=== PATIENT | female | born 1950 | race Caucasian/White ===

== ENCOUNTER → 2022-08-24 | Outpatient (REF) | payer MEDICARE, MEDICAID, SELFPAY ==
[2022-08-24 07:51] LABS: Absolute Lymphocyte Count 1.62 X10^3/uL (0.83-4.51); Absolute Neutrophil Count 5.7 X10^3/uL (2.0-7.7); Basophil# 0.04 X10^3/uL; Basophil% 0.5 % (0-1); Eosinophil# 0.24 X10^3/uL; Eosinophils% 2.8 % (0-5); Hematocrit 26.2 % (37-47); Hemoglobin 8.3 g/dL (12.0-15.0); Lymphocyte # 1.62 X10^3/ul (0.83-4.51); Lymphocyte % 19.1 % (19-41); Mean Corp Hgb Conc 31.7 g/dL (32-36); Mean Corpuscular Hgb 32.4 pg (27.0-32.0); Mean Corpuscular Volume 102.3 fL (81-99); Mean Platelet Vol. 9.3 fl (6.2-12.0); Monocyte# 0.84 X10^3/uL; Monocyte% 9.9 % (0-10); NRBC Flagged by Analyzer 0 % (0-5); Neutrophil # 5.68 X10^3/uL (2.7-7.7); Platelet Count 294 K/mm3 (150-450); RBC Distribution Width CV 14.8 % (11.6-14.6); RBC Distribution Width SD 56.2 fl (35.1-43.9); Red Blood Count 2.56 M/mm3 (4.2-5.4); White Blood Count 8.5 K/mm3 (4.4-11.0)
[2022-08-24 08:22] LABS: Anion Gap 12 (5-15); BUN 42 mg/dL (7-18); BUN/Creat Ratio 7.6 RATIO (10-20); Calcium,Total 8.9 mg/dL (8.5-10.1); Chloride 98 mmol/L (98-107); EST Glomerular Filtration Rate 8 mL/min (>60); Est Glom Filt Rate - Afr Amer 10 mL/min (>60); Glucose 127 mg/dL (74-106); Potassium 4.4 mmol/L (3.5-5.1); Sodium Level 136 mmol/L (136-145)
== END ==
LOC: OLS.SW 05:00
PROVIDERS: Visit Provider Internal Medicine
DX: E11.9 Type 2 diabetes mellitus without complications (principal); R68.89 Other general symptoms and signs; Z13.228 Encounter for screening for other metabolic disorders
CPT/HCPCS: 36415; 80048; 85025

== ENCOUNTER 2022-08-28 15:38 | Emergency (ER) | payer MEDICARE, SELFPAY ==
[2022-08-28 15:39] VITALS: BP 148/68; PULSE 96; RESP 15; TEMP 36.7; O2SAT 97; BMI 44.6
--- NOTE | 2022-08-28 15:47 | VDUE_ITS ---
Reason For Study: Swelling Right Proximal Right jugular vein is spontaneous, widely patent, phasic, with no intraluminal echogenicity noted. Right subclavian vein is spontaneous, widely patent, phasic, with no intraluminal echogenicity noted. Right Lower Arm Right radial vein is compressible. Right ulnar vein is compressible. Right Arm Right axillary vein is spontaneous, patent, phasic, competent, compressible and demonstrates augmentation. Right brachial vein is compressible. Right cephalic vein is compressible. Right basilic vein is compressible. Patent fistula noted in the right arm. Patient Safety Preliminary to ED. VL/Venous Duplex US, Unilateral Interpretation Summary Deep veins of the right upper extremity are patent and compressible segmentally . There is no evidence of deep vein thrombosis. Patent right upper extremity fistula Ordering Physician: Tameka Del Rosario Performed By: Rachael Mullen RVT ???
--- NOTE | 2022-08-28 16:44 | EDS_ITS ---
HPI History of Present Illness Chief Complaint: Upper Extremity Injury Narrative Narrative: 72-year-old female past medical history of end-stage renal disease had fistula in her right upper extremity placed approximately 2 months ago. She is waiting for it to mature. She presents because of right upper extremity pain and swelling that she has had over the last 2 to 3 days. She was seen by Dr. Christensen with orthopedics today because of right shoulder pain. He sent her to the emergency department to rule out DVT of her right upper extremity. She states that the swelling has improved of her forearm and hand. She denies any trauma to the area. She was at the orthopod for evaluation of her right shoulder pain and upper arm pain that she has been having. She denies any other symptoms. [facility] Medical History Deep vein thrombosis of right upper extremity Right shoulder pain Home Medications acetaminophen 500 mg tablet (Tylenol Extra Strength) 1,000 mg PO TID 08/28/22 [History Last Taken Unknown] apixaban 5 mg tablet (Eliquis) 5 mg PO BID 08/28/22 [History Last Taken Unknown] ascorbate calcium (vitamin C) 500 mg tablet 500 mg PO DAILY 08/28/22 [History Last Taken Unknown] atorvastatin 40 mg tablet 40 mg PO DAILY 08/28/22 [History Last Taken Unknown] calcitriol 0.25 mcg capsule 0.25 mcg PO DAILY 08/28/22 [History Last Taken Unknown] cholecalciferol (vitamin D3) 1,250 mcg (50,000 unit) tablet (Dialyvite Vitamin D3 Max) 50,000 unit PO QMONTH 08/28/22 [History Last Taken Unknown] doxycycline hyclate 100 mg capsule 100 mg PO BID 08/28/22 [History Last Taken Unknown] ferrous sulfate 325 mg (65 mg iron) tablet (Feosol) 325 mg PO DAILY 08/28/22 [History Last Taken Unknown] insulin glargine 100 unit/mL subcutaneous solution (Lantus U-100 Insulin) 25 unit subcut HS 08/28/22 [History Last Taken Unknown] levothyroxine 100 mcg capsule 100 mcg PO DAILY 08/28/22 [History Last Taken Unknown] magnesium carbonate 250 mg capsule mg PO 08/28/22 [History Last Taken Unknown] methocarbamol 750 mg tablet 750 mg PO TID 08/28/22 [History Last Taken Unknown] oxycodone 5 mg capsule 5 mg PO Q6H PRN 08/28/22 [History Last Taken Unknown] sertraline 100 mg tablet (Zoloft) 200 mg PO DAILY 08/28/22 [History Last Taken Unknown] Allergy/AdvReac Type Severity Reaction Status Date / Time linagliptin [From [facility]] Allergy Severe Hives Verified 08/28/22 14:21 shellfish derived Allergy Severe Hives Verified 08/28/22 14:21 adhesive AdvReac Severe Rash Verified 08/28/22 14:21 Family History Mother Myocardial infarction Father Diabetes Heart disease Surgical History History of total left knee replacement History of total right knee replacement Hx of appendectomy Hx of hysterectomy Social History Smoking Status: Never smoker ROS ROS ED ROS Narrative Constitutional: No fever, no chills. HEENT: No sore throat. No neck pain. No loss of vision. No rhinorrhea. Cardiovascular: No chest pain. No palpitations. No pedal edema. Respiratory: No cough, no shortness of breath. Abdominal: No abdominal pain. No nausea. No vomiting. Genitourinary: No dysuria. No hematuria. Musculoskeletal: Right arm pain and swelling. Neurologic: No headaches. No dizziness. No lightheadedness. Skin: No rash. No change in color. Psychiatric: No depression. No anxiety. EXAM Physical Exam Narrative Exam Narrative: Afebrile. Vital signs noted. HEENT: Normocephalic. Atraumatic. PERRL, EOMI. Neck soft and supple. No point tenderness or step off. Cardiovascular: Regular rate and rhythm. No murmurs, rubs, or gallops appreciated. Respiratory: No tachypnea. Lungs clear to auscultation bilaterally. Gastrointestinal: Abdomen soft, nontender, with normoactive bowel sounds. No rebound or guarding. Neurological: Awake. Alert. Nonfocal, nonlateralizing. Skin: No rash. Normal color. No pallor. Musculoskeletal: No pedal edema. Full range of motion extremities. Fistula in right upper extremity with palpable thrill. Neurovascular intact distally. Palpable radial pulse. No erythema noted. No pitting edema noted of hand. Const Vital Signs: 08/28/22 15:39 Temperature 98.0 F Temperature Source Temporal Pulse Rate 96 Respiratory Rate 15 Blood Pressure 148/68 H Blood Pressure Mean 94 Pulse Ox 97 Oxygen Delivery Method Room Air MDM MDM MDM Narrative Medical decision making narrative: Ultrasound of the right upper extremity was obtained and was read as negative, no evidence of DVT. At this point in time, while I am unsure as to the cause of her right upper extremity pain and swelling, I do feel that she can be discharged safely home to follow-up with orthopedics and her vascular surgeon, Dr. Dl Montana. She will take [id number] medications for analgesia. Return instructions to the emergency department were reviewed. Disposition is discharged home in stable condition. Discharge Plan Triage Chief Complaint: Upper Extremity Injury ED Provider: Andrea Donnelly Dx/Rx/DC Orders Clinical Impression: Pain in right arm, Swelling of right upper extremity Instructions: ED Pain, Acute, Uncertain Cause, ED Peripheral Edema, Unilateral Prescriptions: No Action insulin glargine [Lantus U-100 Insulin] 100 unit/mL solution 25 unit subcut HS methocarbamol 750 mg tablet 750 mg PO TID acetaminophen [Tylenol Extra Strength] 500 mg tablet 1,000 mg PO TID levothyroxine 100 mcg capsule 100 mcg PO DAILY Eliquis 5 mg tablet 5 mg PO BID sertraline [Zoloft] 100 mg tablet 200 mg PO DAILY ferrous sulfate [Feosol] 325 mg (65 mg iron) tablet 325 mg PO DAILY oxycodone 5 mg capsule 5 mg PO Q6H PRN calcitriol 0.25 mcg capsule 0.25 mcg PO DAILY magnesium carbonate 250 mg capsule PO doxycycline hyclate 100 mg capsule 100 mg PO BID Dialyvite Vitamin D3 Max 1,250 mcg (50,000 unit) tablet 50,000 unit PO QMONTH ascorbate calcium (vitamin C) 500 mg tablet 500 mg PO DAILY atorvastatin 40 mg tablet 40 mg PO DAILY Primary Care Provider: Hattie Valadez,Out of Referrals: Dl Montana MD [Med Staff - Active Staff] - 3-5 Days if not improving Antonio Christensen MD [Med Staff - Active Staff] - As soon as possible [facility] ,Out of [Primary Care Provider] - Disposition Disposition: Home, Self Care
== END 2022-08-28 17:14 | disposition home or self-care (01) ==
LOC: ED 17:13
PROVIDERS: Emergency Provider Emergency Medicine; Visit Provider Emergency Medicine
DX: M79.601 Pain in right arm (principal); N18.6 End stage renal disease; Z79.4 Long term (current) use of insulin; M79.89 Other specified soft tissue disorders; Z79.899 Other long term (current) drug therapy; Z86.718 Personal history of other venous thrombosis and embolism
CPT/HCPCS: 99282; 93971

== ENCOUNTER 2022-08-28 21:52 | Emergency (ER) | payer MEDICARE, MEDICAID, SELFPAY ==
[2022-08-28 21:55] VITALS: BP 139/70; PULSE 102; RESP 20; TEMP 36.5; O2SAT 100; BMI 46.3
--- NOTE | 2022-08-28 22:40 | RAD_ITS ---
STUDY: X-RAY CHEST REASON FOR EXAM: Female, 72 years old. dyspnea TECHNIQUE: AP portable. 10:38 PM. COMPARISON: None. FINDINGS: LINES/DEVICES: Indwelling central venous catheter tip in the region of the right atrium. LUNGS: No consolidation. Reticular opacity in the left lower lung may be scarring or subsegmental atelectasis. No pneumothorax. MEDIASTINUM: Aorta atherosclerotic. CARDIAC SILHOUETTE: Not enlarged. BONES AND SOFT TISSUES: No acute abnormalities. RAD/Chest 1 View (Portable) IMPRESSION: Minimal subsegmental atelectasis versus scarring in the left lung base. No infiltrates. Central line. No pneumothorax. Electronically Signed: Mariposa Valenzuela MD at 23:17 EST ,
[2022-08-28] MEDS: Ondansetron ODT 4 MG Tablet PO (22:50)
--- NOTE | 2022-08-28 23:02 | EX.ED.DYSGE1 ---
HPI History of Present Illness Chief Complaint: Other, Pain/Inj Narrative Narrative: Patient is a 72-year-old female from the care home she has a past medical history of end-stage renal disease on dialysis hypertension hyperlipidemia and previous right femur fracture requiring juan placement. Patient states that ever since she fell a few months ago she has been staying at a care home secondary to difficulty ambulating. She states that she believes she injured her shoulder at the same time she hurt her leg but because of distracting injury never felt the pain. She states there is been no new or repeat trauma but she has been having increased right shoulder pain so she went and saw the orthopedic surgeon today. They did x-rays did not reveal any acute findings other than arthritis. She is swollen in the right arm and therefore they asked her to see the vascular surgeon who performed an ultrasound which did not show any DVT. Patient states she feels she is filling up with fluid and she feels this is secondary to the fact that they do not take enough fluid off at dialysis. She states she is scared to go to sleep because she feels there is fluid in her lungs and therefore comes to the hospital for evaluation [facility] Medical History Congestive heart failure Diabetes DVT (deep venous thrombosis) Renal failure Right shoulder pain Home Medications acetaminophen 500 mg tablet (Tylenol Extra Strength) 1,000 mg PO TID 08/28/22 [History Last Taken Unknown] apixaban 5 mg tablet (Eliquis) 5 mg PO BID 08/28/22 [History Last Taken Unknown] ascorbate calcium (vitamin C) 500 mg tablet 500 mg PO DAILY 08/28/22 [History Last Taken Unknown] atorvastatin 40 mg tablet 40 mg PO DAILY 08/28/22 [History Last Taken Unknown] calcitriol 0.25 mcg capsule 0.25 mcg PO DAILY 08/28/22 [History Last Taken Unknown] cholecalciferol (vitamin D3) 1,250 mcg (50,000 unit) tablet (Dialyvite Vitamin D3 Max) 50,000 unit PO QMONTH 08/28/22 [History Last Taken Unknown] doxycycline hyclate 100 mg capsule 100 mg PO BID 08/28/22 [History Last Taken Unknown] ferrous sulfate 325 mg (65 mg iron) tablet (Feosol) 325 mg PO DAILY 08/28/22 [History Last Taken Unknown] insulin glargine 100 unit/mL subcutaneous solution (Lantus U-100 Insulin) 25 unit subcut HS 08/28/22 [History Last Taken Unknown] levothyroxine 100 mcg capsule 100 mcg PO DAILY 08/28/22 [History Last Taken Unknown] magnesium carbonate 250 mg capsule mg PO 08/28/22 [History Last Taken Unknown] methocarbamol 750 mg tablet 750 mg PO TID 08/28/22 [History Last Taken Unknown] oxycodone 5 mg capsule 5 mg PO Q6H PRN 08/28/22 [History Last Taken Unknown] sertraline 100 mg tablet (Zoloft) 200 mg PO DAILY 08/28/22 [History Last Taken Unknown] Allergy/AdvReac Type Severity Reaction Status Date / Time linagliptin [From Tradjenta] Allergy Severe Hives Verified 08/28/22 22:06 shellfish derived Allergy Severe Hives Verified 08/28/22 22:06 adhesive AdvReac Severe Rash Verified 08/28/22 22:06 stevioside [From Stevia] AdvReac Anaphylaxis Verified 08/28/22 22:06 Family History Mother Myocardial infarction Father Diabetes Heart disease Surgical History History of total left knee replacement History of total right knee replacement Hx of appendectomy Hx of hysterectomy Social History Smoking Status: Never smoker ROS ROS ED Constitutional Constitutional ED: Denies chills or fever(s) ENT ENT ED: Denies sore throat Cardiovascular Cardiovascular: Denies chest pain Respiratory/Chest Respiratory/Chest: Reports dyspnea; Denies cough Gastrointestinal Gastrointestinal: Denies abdominal pain, diarrhea, nausea or vomiting Genitourinary Genitourinary ED: Denies dysuria Musculoskeletal Musculoskeletal: Reports other Details: Positive right shoulder pain Integumentary Denies rash Neurologic Neurologic: Reports weakness; Denies headache(s) Hematologic/Lymphatic Hematologic/Lymphatic: Reports easy bleeding and easy bruising EXAM Physical Exam Const Vital Signs: 08/28/22 21:55 08/28/22 22:06 Temperature 97.7 F L Temperature Source Temporal Pulse Rate 102 H Respiratory Rate 20 H Respiratory Effort Labored Respiratory Pattern Tachypnea Blood Pressure 139/70 H Blood Pressure Mean 93 Pulse Ox 100 Oxygen Delivery Method Nasal Cannula Oxygen Flow Rate (L/min) 2 Positive well nourished, well developed and obese General Appearance ED: well developed Nutritional Appearance: obese HEENT HEENT Narrative: No tongue or lip swelling no oral lesions no airway edema or compromise Eyes PERRL and EOMs intact bilaterally Neck supple and no JVD Resp Resp Narrative: Patient has mild tachypnea and slight accessory muscle use but otherwise no nasal flaring or retractions. Breath sounds are slight diminished throughout with faint rhonchi noted in the right lower lung field. Patient is able to speak in full sentences without dyspnea Cardio regular rate and regular rhythm GI non-tender and non-distended GI Narrative: No pulsatile mass or fluid wave noted Auscultation: normoactive bowel sounds Palpation: soft Extremity Extremity Narrative: Patient has diffuse pain with palpation of the right shoulder. There is diffuse swelling of the right arm as well but overall no joint effusion or bony deformity negative sulcus sign Bilateral legs have +3 pitting edema but negative Homans' sign bilaterally Neuro oriented x3 and CN's II-XII intact bilaterally Sensorium / Orientation: alert Psych Psych Narrative: Patient has a nervous/anxious affect Skin no rashes or lesions noted MDM MDM MDM Narrative Medical decision making narrative: Patient presented to the ER with just mild increased work of breathing and a pulse ox in the mid 90s on room air. By exam she has peripheral edema consistent with her history of end-stage renal disease on dialysis but I do not see JVD or hear crackles to suggest central vascular congestion. As patient reported she believes she was filling with fluid I did elect to perform a chest x-ray. This showed no pleural effusion or central vascular congestion. On reevaluation the patient is still satting 95% on room air with minimal work of breathing. As she does not have a significant pleural effusion that requires a thoracentesis and she is not hypoxic I do not feel there is need for further work-up. Patient be discharged back to the care home at this time Radiography Diagnostic Testing: Clinical Impression(s) from Imaging Studies Chest X-Ray 08/28/22 22:40 IMPRESSION: Minimal subsegmental atelectasis versus scarring in the left lung base. No infiltrates. Central line. No pneumothorax. Electronically Signed: Mariposa Valenzuela MD at 23:17 EST , Chest x-ray as interpreted by the emergency medicine physician reveals mild bilateral atelectasis without acute infiltrate pneumothorax or pleural effusion Discharge Plan Triage Chief Complaint: Other, Pain/Inj ED Provider: Dante Alarcon Dx/Rx/DC Orders Clinical Impression: Dyspnea, Chronic kidney disease with end stage renal failure on dialysis, Benign essential hypertension, DM type 2 (diabetes mellitus, type 2) Instructions: ED Dyspnea Prescriptions: No Action insulin glargine [Lantus U-100 Insulin] 100 unit/mL solution 25 unit subcut HS methocarbamol 750 mg tablet 750 mg PO TID acetaminophen [Tylenol Extra Strength] 500 mg tablet 1,000 mg PO TID levothyroxine 100 mcg capsule 100 mcg PO DAILY Eliquis 5 mg tablet 5 mg PO BID sertraline [Zoloft] 100 mg tablet 200 mg PO DAILY ferrous sulfate [Feosol] 325 mg (65 mg iron) tablet 325 mg PO DAILY oxycodone 5 mg capsule 5 mg PO Q6H PRN calcitriol 0.25 mcg capsule 0.25 mcg PO DAILY magnesium carbonate 250 mg capsule PO doxycycline hyclate 100 mg capsule 100 mg PO BID Dialyvite Vitamin D3 Max 1,250 mcg (50,000 unit) tablet 50,000 unit PO QMONTH ascorbate calcium (vitamin C) 500 mg tablet 500 mg PO DAILY atorvastatin 40 mg tablet 40 mg PO DAILY Primary Care Provider: Asmita Rodney Referrals: Asmita Rodney MD [Primary Care Provider] - Activity Restrictions/Additional Instructions: Please talk to your audio visual production specialist about taking more fluid off at dialysis based on your leg swelling and symptoms. However your x-ray today does not show fluid within your lungs. Please return to the ER should you have any further concerns Disposition Disposition: Home, Self Care
== END 2022-08-29 00:05 | disposition home or self-care (01) ==
PROVIDERS: Emergency Provider Emergency Medicine; PCP Internal Medicine; Visit Provider Emergency Medicine
DX: R06.00 Dyspnea, unspecified (principal); I13.2 Hypertensive heart and chronic kidney disease with heart failure and with stage 5 chronic kidney disease, or end stage renal disease; Z99.2 Dependence on renal dialysis; I50.9 Heart failure, unspecified; E11.22 Type 2 diabetes mellitus with diabetic chronic kidney disease; N18.6 End stage renal disease; Z79.4 Long term (current) use of insulin; E78.5 Hyperlipidemia, unspecified; E66.9 Obesity, unspecified; M79.89 Other specified soft tissue disorders; M79.601 Pain in right arm; Z79.899 Other long term (current) drug therapy; Z86.718 Personal history of other venous thrombosis and embolism
CPT/HCPCS: 71045; 93971; 99282; 99284

== ENCOUNTER → 2022-08-31 | Outpatient (REF) | payer MEDICARE, MEDICAID, SELFPAY ==
[2022-08-31 08:57] LABS: Absolute Lymphocyte Count 1.51 X10^3/uL (0.83-4.51); Absolute Neutrophil Count 8.7 X10^3/uL (2.0-7.7); Basophil# 0.02 X10^3/uL; Basophil% 0.2 % (0-1); Eosinophil# 0.14 X10^3/uL; Eosinophils% 1.2 % (0-5); Hematocrit 26.4 % (37-47); Hemoglobin 8.4 g/dL (12.0-15.0); Lymphocyte # 1.51 X10^3/ul (0.83-4.51); Lymphocyte % 13.1 % (19-41); Mean Corp Hgb Conc 31.8 g/dL (32-36); Mean Corpuscular Hgb 32.1 pg (27.0-32.0); Mean Corpuscular Volume 100.8 fL (81-99); Monocyte# 1.05 X10^3/uL; Monocyte% 9.1 % (0-10); NRBC Flagged by Analyzer 0 % (0-5); Neutrophil # 8.72 X10^3/uL (2.7-7.7); Neutrophil % 75.5 % (47-70); Platelet Count 357 K/mm3 (150-450); RBC Distribution Width CV 14.7 % (11.6-14.6); RBC Distribution Width SD 54.2 fl (35.1-43.9); Red Blood Count 2.62 M/mm3 (4.2-5.4); White Blood Count 11.5 K/mm3 (4.4-11.0)
[2022-08-31 09:08] LABS: Anion Gap 10 (5-15); BUN 49 mg/dL (7-18); BUN/Creat Ratio 9.5 RATIO (10-20); Calcium,Total 8.9 mg/dL (8.5-10.1); Chloride 97 mmol/L (98-107); Creatinine, Serum 5.18 mg/dL (0.55-1.02); EST Glomerular Filtration Rate 9 mL/min (>60); Est Glom Filt Rate - Afr Amer 11 mL/min (>60); Glucose 60 mg/dL (74-106); Sodium Level 134 mmol/L (136-145)
== END ==
LOC: OLS.SW 05:00
PROVIDERS: PCP Internal Medicine; Visit Provider Internal Medicine
DX: E11.9 Type 2 diabetes mellitus without complications (principal)
CPT/HCPCS: 36415; 80048; 85025

== ENCOUNTER → 2022-09-07 | Outpatient (REF) | payer MEDICARE, MEDICAID, SELFPAY ==
[2022-09-07 07:37] LABS: Absolute Lymphocyte Count 1.73 X10^3/uL (0.83-4.51); Absolute Neutrophil Count 5.3 X10^3/uL (2.0-7.7); Basophil# 0.03 X10^3/uL; Basophil% 0.4 % (0-1); Eosinophil# 0.24 X10^3/uL; Eosinophils% 2.9 % (0-5); Hematocrit 27.9 % (37-47); Hemoglobin 8.3 g/dL (12.0-15.0); Lymphocyte # 1.73 X10^3/ul (0.83-4.51); Lymphocyte % 21.1 % (19-41); Mean Corp Hgb Conc 29.7 g/dL (32-36); Mean Corpuscular Hgb 31.6 pg (27.0-32.0); Mean Corpuscular Volume 106.1 fL (81-99); Mean Platelet Vol. 8.6 fl (6.2-12.0); Monocyte# 0.78 X10^3/uL; Monocyte% 9.5 % (0-10); NRBC Flagged by Analyzer 0 % (0-5); Neutrophil # 5.28 X10^3/uL (2.7-7.7); Neutrophil % 64.5 % (47-70); Platelet Count 376 K/mm3 (150-450); RBC Distribution Width CV 15.1 % (11.6-14.6); RBC Distribution Width SD 59.5 fl (35.1-43.9); Red Blood Count 2.63 M/mm3 (4.2-5.4); White Blood Count 8.2 K/mm3 (4.4-11.0)
[2022-09-07 07:49] LABS: Anion Gap 10 (5-15); BUN 34 mg/dL (7-18); BUN/Creat Ratio 6.9 RATIO (10-20); Calcium,Total 8.8 mg/dL (8.5-10.1); Chloride 100 mmol/L (98-107); Creatinine, Serum 4.96 mg/dL (0.55-1.02); EST Glomerular Filtration Rate 9 mL/min (>60); Est Glom Filt Rate - Afr Amer 11 mL/min (>60); Glucose 128 mg/dL (74-106); Potassium 4.7 mmol/L (3.5-5.1); Sodium Level 135 mmol/L (136-145)
== END ==
LOC: OLS.SW 04:00
PROVIDERS: PCP Internal Medicine; Referring Provider Internal Medicine; Visit Provider Internal Medicine
DX: E11.9 Type 2 diabetes mellitus without complications (principal); I50.9 Heart failure, unspecified
CPT/HCPCS: 36415; 80048; 85025

== ENCOUNTER → 2022-09-14 | Outpatient (REF) | payer MEDICARE, MEDICAID, SELFPAY ==
[2022-09-14 09:22] LABS: Absolute Neutrophil Count 5.5 X10^3/uL (2.0-7.7); Basophil# 0.03 X10^3/uL; Basophil% 0.4 % (0-1); Eosinophils% 2.4 % (0-5); Hematocrit 31.4 % (37-47); Hemoglobin 9.6 g/dL (12.0-15.0); Lymphocyte % 20.7 % (19-41); Mean Corp Hgb Conc 30.6 g/dL (32-36); Mean Corpuscular Hgb 30.6 pg (27.0-32.0); Mean Platelet Vol. 9.6 fl (6.2-12.0); Monocyte# 0.72 X10^3/uL; Monocyte% 8.8 % (0-10); NRBC Flagged by Analyzer 0 % (0-5); Neutrophil # 5.48 X10^3/uL (2.7-7.7); Neutrophil % 66.7 % (47-70); Platelet Count 331 K/mm3 (150-450); Red Blood Count 3.14 M/mm3 (4.2-5.4); White Blood Count 8.2 K/mm3 (4.4-11.0)
[2022-09-14 09:38] LABS: Anion Gap 10 (5-15); BUN 44 mg/dL (7-18); BUN/Creat Ratio 7.7 RATIO (10-20); Chloride 95 mmol/L (98-107); Creatinine, Serum 5.72 mg/dL (0.55-1.02); EST Glomerular Filtration Rate 8 mL/min (>60); Est Glom Filt Rate - Afr Amer 9 mL/min (>60); Glucose 108 mg/dL (74-106); Potassium 4.4 mmol/L (3.5-5.1); Sodium Level 132 mmol/L (136-145)
== END ==
LOC: OLS.SW 06:15
PROVIDERS: PCP Internal Medicine; Visit Provider Internal Medicine
DX: R68.89 Other general symptoms and signs (principal); Z13.228 Encounter for screening for other metabolic disorders
CPT/HCPCS: 36415; 80048; 85025

== ENCOUNTER → 2022-09-21 | Outpatient (REF) | payer MEDICARE, MEDICAID, SELFPAY ==
[2022-09-21 08:11] LABS: Absolute Lymphocyte Count 1.53 X10^3/uL (0.83-4.51); Absolute Neutrophil Count 4.7 X10^3/uL (2.0-7.7); Basophil# 0.03 X10^3/uL; Basophil% 0.4 % (0-1); Eosinophil# 0.24 X10^3/uL; Eosinophils% 3.3 % (0-5); Hematocrit 34.8 % (37-47); Hemoglobin 10.6 g/dL (12.0-15.0); Lymphocyte # 1.53 X10^3/ul (0.83-4.51); Mean Corp Hgb Conc 30.5 g/dL (32-36); Mean Corpuscular Volume 105.1 fL (81-99); Mean Platelet Vol. 8.9 fl (6.2-12.0); Monocyte# 0.72 X10^3/uL; Monocyte% 9.9 % (0-10); NRBC Flagged by Analyzer 0 % (0-5); Neutrophil # 4.71 X10^3/uL (2.7-7.7); Neutrophil % 64.8 % (47-70); Platelet Count 241 K/mm3 (150-450); RBC Distribution Width CV 16.9 % (11.6-14.6); RBC Distribution Width SD 62.9 fl (35.1-43.9); Red Blood Count 3.31 M/mm3 (4.2-5.4); White Blood Count 7.3 K/mm3 (4.4-11.0)
[2022-09-21 08:25] LABS: Anion Gap 7 (5-15); BUN 30 mg/dL (7-18); BUN/Creat Ratio 5.8 RATIO (10-20); Chloride 100 mmol/L (98-107); Creatinine, Serum 5.21 mg/dL (0.55-1.02); EST Glomerular Filtration Rate 9 mL/min (>60); Est Glom Filt Rate - Afr Amer 11 mL/min (>60); Glucose 119 mg/dL (74-106); Potassium 5.2 mmol/L (3.5-5.1); Sodium Level 134 mmol/L (136-145)
== END ==
LOC: OLS.SW 04:00
PROVIDERS: PCP Internal Medicine; Visit Provider Internal Medicine
DX: E11.22 Type 2 diabetes mellitus with diabetic chronic kidney disease (principal); N18.6 End stage renal disease
CPT/HCPCS: 36415; 80048; 85025

== ENCOUNTER 2022-09-24 12:55 | Emergency (ER) | payer MEDICARE, MEDICAID, SELFPAY ==
[2022-09-24] VITALS (11 sets, daily range): BP systolic 93–133; BP diastolic 46–62; PULSE 85–155; RESP 14–33; TEMP 36.1–37.3; O2SAT 95–100; BMI 45.4
--- NOTE | 2022-09-24 12:57 | ED.RN ---
pt had about a [address] Aguayo at bedside. he gave verbal order for ativan 2 mg iv and 1,000mg of keppra, when iv established.
[2022-09-24] MEDS: LORazepam 2 MG/ML Syringe IV (13:00)
--- NOTE | 2022-09-24 13:02 | EKG12_ITS ---
Test Reason : Blood Pressure : / mmHG Vent. Rate : 129 BPM Atrial Rate : 129 BPM P-R Int : 212 ms QRS Dur : 084 ms QT Int : 330 ms P-R-T Axes : 000 -06 046 degrees QTc Int : 483 ms Sinus tachycardia with 1st degree A-V block with occasional Premature ventricular complexes Nonspecific ST abnormality Abnormal ECG Confirmed by SNOW HDZ, DIANA ([id number]), editor greeting card LYNNE ESTES ([id number]) on 09/26/2022 12:03:31 PM Referred By: Olivier Confirmed By:DIANA ADAMSON MD
--- NOTE | 2022-09-24 13:02 | NURSING ---
NO OLD EKGS
[2022-09-24] MEDS: levETIRAcetam IV 1,000 MG/100 ML BAG 400 MG IV (13:10)
--- NOTE | 2022-09-24 13:14 | CT_ITS ---
STUDY: CT BRAIN WITHOUT CONTRAST REASON FOR EXAM: Female, 72 years old. Seizure RADIATION DOSAGE (If Supplied By Facility): CTDIvol = ( 44.99 ) mGy, DLP = ( 812.98 ) mGycm TECHNIQUE: Transaxial CT imaging of the brain was performed without administration of intravenous contrast material. Individualized dose optimization techniques were used for this CT. COMPARISON: No relevant priors. FINDINGS: Normal soft tissue structures. There is hyperostosis frontalis internus. There is mild cerebral atrophy with widening of the extra-axial spaces and ventricular dilatation. Subtle focal area of decreased attenuation in the anterior aspect of the left frontal lobe. Correlation with MRI or enhanced CT scan is recommended. Normal basal ganglia and thalami. Normal brainstem. Normal cerebellum. There is no intracranial hemorrhage. There are no findings of an acute ischemic infarction. Normal visualized paranasal sinuses. CT/Brain/Head without Contrast IMPRESSION: Chronic involutional changes of the brain. Focal area of decreased attenuation in the anterior aspect of the left frontal lobe. Correlation with enhanced CT scan or MRI is recommended for further evaluation. Electronically Signed: Flo Hutchins MD at 14:37 EST ,
--- NOTE | 2022-09-24 13:14 | RAD_ITS ---
STUDY: X-RAY CHEST REASON FOR EXAM: Female, 72 years old. Seizure TECHNIQUE: Single AP portable view of the chest. COMPARISON: Comparison is made with prior study dated 08/28/2022. FINDINGS: A right-sided double-lumen catheter seen with the tip in the right atrium. EKG electrodes are seen. Stable mild increased linear markings in the left lung base suggestive of mild scarring and/or atelectasis. There is blunting of the left costo phrenic angle. There is moderate cardiac enlargement. Normal mediastinum and angelo. Normal visualized pulmonary arteries. There is atherosclerotic calcification of the aortic arch with tortuosity. There are diffuse degenerative changes of the visualized thoracic spine. Normal visualized ribs, clavicles, and shoulders. There is no demonstrated abnormality of the visualized soft tissue structures of the upper abdomen. RAD/Chest 1 View (Portable) IMPRESSION: Mild increased linear markings at the left lung base. This most likely represents left basilar atelectasis. This is unchanged. Electronically Signed: Flo Hutchins MD at 14:16 EST ,
--- NOTE | 2022-09-24 13:16 | EX.ED.DYSGE1 ---
HPI History of Present Illness Chief Complaint: Unresponsive Informant: EMS Narrative Narrative: 72-year-old female history of SADIE chronic kidney disease diabetes morbid obesity reportedly had a seizure at dialysis today and was unresponsive. Upon arrival to emergency department was noted that the patient appears to still be seizing. There is no reported history of seizures. Paperwork from [place] [facility] states that she is a full code. I see that she is on apixaban [facility] Medical History Congestive heart failure Diabetes DVT (deep venous thrombosis) Renal failure Right shoulder pain Home Medications acetaminophen 500 mg tablet (Tylenol Extra Strength) 1,000 mg PO TID PAIN 08/28/22 [History Last Taken 09/24/22] apixaban 5 mg tablet (Eliquis) 5 mg PO BID BLOOD THINNER 08/28/22 [History Last Taken 09/24/22] atorvastatin 40 mg tablet 40 mg PO QHS CHOLESTEROL 08/28/22 [History Last Taken 09/23/22] ferrous sulfate 325 mg (65 mg iron) tablet (Feosol) 325 mg PO DAILY SUPPLEMENT 08/28/22 [History Last Taken 09/24/22] insulin glargine 100 unit/mL subcutaneous solution (Lantus U-100 Insulin) 25 unit subcut QHS DIABETES 08/28/22 [History Last Taken 09/23/22] methocarbamol 750 mg tablet 750 mg PO TID 08/28/22 [History Last Taken 09/24/22] sertraline 100 mg tablet (Zoloft) 200 mg PO DAILY DEPRESSION 08/28/22 [History Last Taken 09/23/22] calcitriol 0.5 mcg capsule 0.5 mcg PO MOWEFR 09/24/22 [History Last Taken 09/21/22] calcium acetate 667 mg tablet 667 mg PO TIDCM 09/24/22 [History Last Taken 09/24/22] diclofenac sodium 1 % topical gel 1 ea topical BID PAIN 09/24/22 [History Last Taken 09/24/22] furosemide 40 mg tablet 40 mg PO DAILY FLUID 09/24/22 [History Last Taken 09/24/22] insulin lispro 100 unit/mL subcutaneous pen (Humalog KwikPen (U-100) Insulin) See Protocol subcut UD DIABETES 09/24/22 [History Last Taken 09/24/22] levothyroxine 100 mcg tablet 100 mcg PO DAILY THYROID 09/24/22 [History Last Taken 09/24/22] oxycodone 5 mg tablet 5 mg PO Q8H PRN Pain 09/24/22 [History Last Taken 09/21/22] vitamin B complex and vitamin C no.20-folic acid 1 mg capsule 1 cap PO DAILY SUPPLEMENT 09/24/22 [History Last Taken 09/24/22] Allergy/AdvReac Type Severity Reaction Status Date / Time linagliptin [From Tradjenta] Allergy Severe Hives Verified 08/28/22 22:06 shellfish derived Allergy Severe Hives Verified 08/28/22 22:06 adalimumab Allergy NEEDS Verified 09/24/22 13:27 FOLLOW-UP aspartame Allergy NEEDS Verified 09/24/22 13:27 FOLLOW-UP phenylalanine Allergy NEEDS Verified 09/24/22 13:27 FOLLOW-UP adhesive AdvReac Severe Rash Verified 08/28/22 22:06 stevioside [From Stevia] AdvReac Anaphylaxis Verified 08/28/22 22:06 Family History Mother Myocardial infarction Father Diabetes Heart disease Surgical History History of total left knee replacement History of total right knee replacement Hx of appendectomy Hx of hysterectomy Social History Smoking Status: Never smoker ROS ROS ED Review of Systems ROS Unobtainable: due to mental status EXAM Physical Exam Const Vital Signs: 09/24/22 12:57 09/24/22 13:31 09/24/22 14:21 Temperature 97.0 F L Temperature Source Temporal Pulse Rate 155 H 107 H 95 Respiratory Rate 32 H 33 H 17 Blood Pressure 97/46 L 93/47 L Blood Pressure Mean 63 62 Pulse Ox 96 99 100 Oxygen Delivery Method Non-Rebreather @ 15L/min Non-Rebreather Non-Rebreather Oxygen Flow Rate (L/min) 15 09/24/22 15:06 09/24/22 16:02 09/24/22 16:21 Temperature Temperature Source Pulse Rate 97 92 Respiratory Rate 21 H 18 Blood Pressure 102/55 L 114/58 L Blood Pressure Mean 70 76 Pulse Ox 100 99 99 Oxygen Delivery Method Non-Rebreather Non-Rebreather Room Air Oxygen Flow Rate (L/min) Positive well nourished, well developed and obese General Appearance ED: well developed Nutritional Appearance: obese HEENT Reports normocephalic, head/scalp atraumatic and moist mucous membranes Eyes Eyes Narrative: Eyes are deviated to the right Neck no lymphadenopathy, supple and no JVD Resp normal respiratory effort and clear to auscultation bilaterally Cardio regular rate, regular rhythm and no murmurs GI normal to inspection, nondistended, normoactive bowel sounds and non-tender Palpation: soft Back/Spine no CVA tenderness and normal ROM Extremity normal to inspection General Extremety ED: Negative for edema General Extremity: Negative for edema Neuro Neuro Narrative: Patient has seizure activity of the right arm and right face with right deviation with her eyes. She is drooling and teeth are clenched. Psych Mood & Affect: tearful Skin Skin Narrative: Appearing wound to the right lower extremity MDM MDM MDM Narrative Medical decision making narrative: Upon arrival in the emergency department the patient was taken to the resuscitation room. It was evident that the patient is still seizing. IV was established and she received 2 mg of Ativan IV. This stopped her seizure activity. She was given a gram of Keppra. Blood work was. Lactic acid is 11.9. CT of the brain was obtained. No hemorrhage. Please see radiology read. Patient has yet to achieve neurologic baseline. She is sleeping at the current time most likely as result of the Ativan. ABG was obtained shows a pH of 7.36 PCO2 51 PO2 of 108 bicarb 28.6. Patient has not made any urine though family states she does typically make some. While respiratory was drying her ABG she did have some purposeful motion and that she was wincing in pulling her arm back. I spoke with [facility] and the patient it was recommended should have a EEG tonight. I am unable to get one here so I spoke with family about transferring and they have chosen [facility]. Lab Data Attestation: I reviewed the patient's lab results. Labs: Laboratory Results - last 24 hr 09/24/22 09/24/22 09/24/22 13:25 13:25 13:25 WBC 9.3 RBC 3.22 L Hgb 10.1 L Hct 33.7 L MCV 104.7 H MCH 31.4 MCHC 30.0 L RDW Std Deviation 65.2 H RDW Coeff of Moises 16.7 H Plt Count 225 MPV 9.1 Immature Gran % (Auto) 1.300 H Neut % (Auto) 62.6 Lymph % (Auto) 23.8 Chilton % (Auto) 8.3 Eos % (Auto) 3.6 Baso % (Auto) 0.4 Absolute Neuts (auto) 5.8 Absolute Lymphs (auto) 2.22 Nucleated RBC % 0 Differential Comment SCANNED Polychromasia 1+ Macrocytosis 1+ PT 15.9 H INR 1.3 APTT 33.2 Sodium 133 L Potassium 3.6 Chloride 95 L Carbon Dioxide 19.0 L Anion Gap 19 H BUN 18 Creatinine 3.70 H Estim Creat Clear Calc 12.04 Est GFR (MDRD) Af Amer 16 L Est GFR (MDRD) Non-Af 13 L BUN/Creatinine Ratio 4.9 L Glucose 168 H Lactic Acid Calcium 9.0 Total Bilirubin 0.60 Direct Bilirubin 0.11 AST 27 ALT 25 Alkaline Phosphatase 200 H Total Protein 7.5 Albumin 2.6 L Globulin 4.9 H Ethyl Alcohol 09/24/22 09/24/22 13:25 13:25 WBC RBC Hgb Hct MCV MCH MCHC RDW Std Deviation RDW Coeff of Moises Plt Count MPV Immature Gran % (Auto) Neut % (Auto) Lymph % (Auto) Chilton % (Auto) Eos % (Auto) Baso % (Auto) Absolute Neuts (auto) Absolute Lymphs (auto) Nucleated RBC % Differential Comment Polychromasia Macrocytosis PT INR APTT Sodium Potassium Chloride Carbon Dioxide Anion Gap BUN Creatinine Estim Creat Clear Calc Est GFR (MDRD) Af Amer Est GFR (MDRD) Non-Af BUN/Creatinine Ratio Glucose Lactic Acid 11.9 H* Calcium Total Bilirubin Direct Bilirubin AST ALT Alkaline Phosphatase Total Protein Albumin Globulin Ethyl Alcohol < 3.0 ABG Data ABG results: ABG 09/24/22 16:32 Specimen Type ART Sample Site L Radial pH 7.36 Bicarbonate Actual 28.6 H Total CO2 30 Base Excess 3 H O2 Saturation 98 ABG pCO2 51.0 H ABG pO2 108 H Devante Test Positive O2 Delivery Device Cannula Liter Flow 3.0 Radiography Diagnostic Testing: Clinical Impression(s) from Imaging Studies Brain CT 09/24/22 13:14 IMPRESSION: Chronic involutional changes of the brain. Focal area of decreased attenuation in the anterior aspect of the left frontal lobe. Correlation with enhanced CT scan or MRI is recommended for further evaluation. Electronically Signed: Flo Hutchins MD at 14:37 EST , Chest X-Ray 09/24/22 13:14 IMPRESSION: Mild increased linear markings at the left lung base. This most likely represents left basilar atelectasis. This is unchanged. Electronically Signed: Flo Hutchins MD at 14:16 EST , EKG Initial EKG: Attestation: I personally reviewed and interpreted this EKG as follows: Comments: Sinus tachycardia with a first-degree AV block ventricular rate of 129 bpm Discharge Plan Triage Chief Complaint: Unresponsive ED Provider: Dayo Aguayo Dx/Rx/DC Orders Clinical Impression: Obstructive sleep apnea syndrome, Benign essential hypertension, Dialysis patient, DM type 2 (diabetes mellitus, type 2), Morbid obesity, Seizure Prescriptions: No Action insulin glargine [Lantus U-100 Insulin] 100 unit/mL solution 25 unit subcut QHS methocarbamol 750 mg tablet 750 mg PO TID acetaminophen [Tylenol Extra Strength] 500 mg tablet 1,000 mg PO TID Eliquis 5 mg tablet 5 mg PO BID sertraline [Zoloft] 100 mg tablet 200 mg PO DAILY ferrous sulfate [Feosol] 325 mg (65 mg iron) tablet 325 mg PO DAILY atorvastatin 40 mg tablet 40 mg PO QHS oxycodone 5 mg Tablet 5 mg PO Q8H PRN (Reason: Pain) insulin lispro [Humalog KwikPen Insulin] 100 unit/mL Insulin Pen See Protocol SUBCUT UD Protocol: 6. Sliding Scale Insulin Custom Condition: mg/dl range Dose/Route: Number of Units Condition: 151-200 Dose/Route: 1 Condition: 201-250 Dose/Route: 2 Condition: 251-300 Dose/Route: 3 Condition: 301-350 Dose/Route: 4 Condition: 351-400 Dose/Route: 5 Protocol Text: Custom Sliding Scale furosemide 40 mg Tablet 40 mg PO DAILY levothyroxine 100 mcg Tablet 100 mcg PO DAILY calcitriol 0.5 mcg Capsule 0.5 mcg PO MOWEFR Nephrocaps 1 mg Capsule 1 cap PO DAILY diclofenac sodium 1 % Gel 1 ea TOPICAL BID calcium acetate 667 mg Tablet 667 mg PO TIDCM Primary Care Provider: Asmita Rodney Referrals: Asmita Rodney MD [Primary Care Provider] - Disposition Disposition: Acute Care Hospital Discharge Location: [facility]
--- NOTE | 2022-09-24 13:33 | ED.RN ---
pt is a dialysis pt, unknown at this time whether she produces urine. no urine no olivas at this time.
[2022-09-24 13:36] LABS: Absolute Lymphocyte Count 2.22 X10^3/uL (0.83-4.51); Absolute Neutrophil Count 5.8 X10^3/uL (2.0-7.7); Basophil# 0.04 X10^3/uL; Basophil% 0.4 % (0-1); Eosinophil# 0.34 X10^3/uL; Eosinophils% 3.6 % (0-5); Hematocrit 33.7 % (37-47); Hemoglobin 10.1 g/dL (12.0-15.0); Lymphocyte # 2.22 X10^3/ul (0.83-4.51); Lymphocyte % 23.8 % (19-41); Mean Corpuscular Hgb 31.4 pg (27.0-32.0); Mean Corpuscular Volume 104.7 fL (81-99); Mean Platelet Vol. 9.1 fl (6.2-12.0); Monocyte# 0.77 X10^3/uL; Monocyte% 8.3 % (0-10); NRBC Flagged by Analyzer 0 % (0-5); Neutrophil # 5.84 X10^3/uL (2.7-7.7); Neutrophil % 62.6 % (47-70); POSITIVE MORPHOLOGY YES; Platelet Count 225 K/mm3 (150-450); RBC Distribution Width CV 16.7 % (11.6-14.6); RBC Distribution Width SD 65.2 fl (35.1-43.9); Red Blood Count 3.22 M/mm3 (4.2-5.4); White Blood Count 9.3 K/mm3 (4.4-11.0)
[2022-09-24 13:48] LABS: International Normalized Ratio 1.3; Prothrombin Time (Protime)PT. 15.9 SECONDS (11.7-14.9)
[2022-09-24 13:49] LABS: Partial Thromboplast Time 33.2 Seconds (24.1-36.2)
[2022-09-24 13:52] LABS: Differential Indicated SCAN CRITERIA MET
[2022-09-24 13:55] LABS: AST(SGOT) 27 U/L (15-37); Alanine Aminotransfer ALT/SGPT 25 U/L (13-56); Albumin, Serum 2.6 g/dL (3.2-5.0); Alkaline Phosphatase 200 U/L (45-117); Anion Gap 19 (5-15); BUN 18 mg/dL (7-18); BUN/Creat Ratio 4.9 RATIO (10-20); Bilirubin, Direct 0.11 mg/dL (0.00-0.30); Chloride 95 mmol/L (98-107); EST Glomerular Filtration Rate 13 mL/min (>60); Est Glom Filt Rate - Afr Amer 16 mL/min (>60); Estimated Creatinine Clearance 12.04 ml/min; Globulin 4.9 g/dL (2.2-4.2); Glucose 168 mg/dL (74-106); Potassium 3.6 mmol/L (3.5-5.1); Protein, Total 7.5 g/dL (6.4-8.2); Sodium Level 133 mmol/L (136-145)
[2022-09-24 13:57] LABS: Alcohol, Blood (Medical)-Serum < 3.0 mg/dL
[2022-09-24 14:01] LABS: Differential Comment SCANNED; Macrocytosis 1+; Polychromasia 1+
[2022-09-24 14:04] LABS: Lactic Acid 11.9 mmol/L (0.4-1.9)
--- NOTE | 2022-09-24 14:05 | ED.RN ---
LACTIC 11.9. DR AQUINO
--- NOTE | 2022-09-24 15:28 | TELEMED_ITS ---
[facility] has confirmed receipt of a request for visit. This document confirms receipt of the order initiating the consult. To find the results of the consultation, please view the patient's reports for the scanned Telemed Consult.
[2022-09-24 16:40] LABS: Allen Test Positive; Base Excess 3 mmol/L (-2 to +2); Bicarbonate 28.6 mmol/L (22-26); Blood Gas Specimen Type ART; O2 Delivery Device Cannula; PO2 108 mmHG (75-100); SITE L Radial; SO2 98 % (95-99); Total Carbon Dioxide 30 mmol/L; pH 7.36 (7.35-7.45)
--- NOTE | 2022-09-24 17:00 | ED.RN ---
spoke with kia at [facility]
[2022-09-24 17:32] LABS: Reflex Lactate? Y
--- NOTE | 2022-09-24 18:16 | NURSING ---
CALLED [facility], NO ACCEPTING PHYSICAN YET
[2022-09-24 18:47] LABS: Lactic Acid 1.8 mmol/L (0.4-1.9)
--- NOTE | 2022-09-24 19:00 | NURSING ---
[facility] CALLED BACK, GOT ACCEPTING INFORMATION. CALLED FOR TRANSPORT ETA .
--- NOTE | 2022-09-24 19:02 | ED.RN ---
attempted to call report. they will call when ready.
[2022-09-24 19:41] LABS: Bacteria 0 SEEN /hpf (None Seen); Color, Urine Yellow (Yellow); Glucose, Dipstick Normal (Normal); Ketone-Dipstick Negative (Negative); Leukocyte Esterase-Dipstick 500 /ul (Negative); Mucous, Urine 0 SEEN /hpf (<or=2+); Nitrite-Dipstick Negative (Negative); Occult Blood-Urine 250 /ul (Negative); Protein-Dipstick 100 mg/dl (Negative); Urine Bilirubin Dipstick Negative (Negative); Urine Clarity Sl. Cloudy (Clear); Urine Urobilinogen Normal (Normal)
[2022-09-24 20:25] LABS: Red Blood Cells-Urine 10-25 SEEN /hpf (0-5); Squamous Epithelial Cells - UA 10-25 SEEN /hpf (5-10); White Blood Cells 50-100 SEEN /hpf (0-5)
[2022-09-24 20:38] LABS: Amphetamine Urine VISTA NEGATIVE (<1000 ng/mL); Barbiturate Urine VISTA NEGATIVE (< 200 ng/mL); Benzodiazepine Urine VISTA NEGATIVE (< 200 ng/mL); Cocaine Urine VISTA NEGATIVE (< 300 ng/mL); Ecstacy Urine VISTA NEGATIVE (< 500 ng/mL); Methadone Urine VISTA NEGATIVE (< 300 ng/mL); PCP Urine VISTA NEGATIVE (< 25 ng/mL); THC Urine VISTA NEGATIVE (< 50 ng/mL); Vista UDS pH Range 7
== END 2022-09-24 21:28 | disposition short-term general hospital (02) ==
PROVIDERS: Emergency Provider Emergency Medicine; PCP Internal Medicine; Visit Provider Emergency Medicine
DX: G47.33 Obstructive sleep apnea (adult) (pediatric) (principal); Z99.2 Dependence on renal dialysis; I11.0 Hypertensive heart disease with heart failure; I50.9 Heart failure, unspecified; E66.01 Morbid (severe) obesity due to excess calories; R56.9 Unspecified convulsions; E11.9 Type 2 diabetes mellitus without complications; Z79.4 Long term (current) use of insulin; Z86.718 Personal history of other venous thrombosis and embolism; Z79.01 Long term (current) use of anticoagulants; Z79.899 Other long term (current) drug therapy
CPT/HCPCS: 36600; 70450; 71045; 80048; 80076; 80307; 81001; 82077; 82803; 83605; 85025; 85610; 85730; 87811; 93005; 96365; 96366; 96375; 99285; A4216

== ENCOUNTER → 2022-10-05 | Outpatient (REF) | payer MEDICARE, MEDICAID, SELFPAY ==
[2022-10-05 13:25] LABS: Absolute Lymphocyte Count 1.88 X10^3/uL (0.83-4.51); Absolute Neutrophil Count 4.9 X10^3/uL (2.0-7.7); Basophil# 0.06 X10^3/uL; Basophil% 0.8 % (0-1); Eosinophil# 0.37 X10^3/uL; Eosinophils% 4.7 % (0-5); Hematocrit 32.7 % (37-47); Hemoglobin 10.3 g/dL (12.0-15.0); Lymphocyte # 1.88 X10^3/ul (0.83-4.51); Lymphocyte % 23.6 % (19-41); Mean Corp Hgb Conc 31.5 g/dL (32-36); Mean Corpuscular Hgb 31.6 pg (27.0-32.0); Mean Corpuscular Volume 100.3 fL (81-99); Mean Platelet Vol. 9.8 fl (6.2-12.0); Monocyte# 0.74 X10^3/uL; Monocyte% 9.3 % (0-10); NRBC Flagged by Analyzer 0 % (0-5); Neutrophil # 4.88 X10^3/uL (2.7-7.7); Neutrophil % 61.3 % (47-70); Platelet Count 208 K/mm3 (150-450); RBC Distribution Width CV 15.9 % (11.6-14.6); RBC Distribution Width SD 59.1 fl (35.1-43.9); Red Blood Count 3.26 M/mm3 (4.2-5.4)
[2022-10-05 13:42] LABS: Anion Gap 17 (5-15); BUN 15 mg/dL (7-18); BUN/Creat Ratio 5.5 RATIO (10-20); Calcium,Total 9.2 mg/dL (8.5-10.1); Chloride 94 mmol/L (98-107); Creatinine, Serum 2.74 mg/dL (0.55-1.02); EST Glomerular Filtration Rate 18 mL/min (>60); Est Glom Filt Rate - Afr Amer 22 mL/min (>60); Glucose 127 mg/dL (74-106); Potassium 3.4 mmol/L (3.5-5.1); Sodium Level 133 mmol/L (136-145)
== END ==
LOC: OLS.SW 05:00
PROVIDERS: PCP Internal Medicine; Visit Provider Internal Medicine
DX: E11.9 Type 2 diabetes mellitus without complications (principal); R68.89 Other general symptoms and signs; Z13.228 Encounter for screening for other metabolic disorders
CPT/HCPCS: 80048; 85025

== ENCOUNTER → 2022-10-10 | Outpatient (REF) | payer MEDICARE, MEDICAID, SELFPAY ==
[2022-10-10 08:22] LABS: Absolute Lymphocyte Count 1.62 X10^3/uL (0.83-4.51); Basophil# 0.03 X10^3/uL; Basophil% 0.5 % (0-1); Eosinophil# 0.33 X10^3/uL; Hematocrit 32.7 % (37-47); Hemoglobin 10.2 g/dL (12.0-15.0); Lymphocyte # 1.62 X10^3/ul (0.83-4.51); Lymphocyte % 24.4 % (19-41); Mean Corp Hgb Conc 31.2 g/dL (32-36); Mean Corpuscular Hgb 31.8 pg (27.0-32.0); Mean Corpuscular Volume 101.9 fL (81-99); Mean Platelet Vol. 9.3 fl (6.2-12.0); Monocyte# 0.69 X10^3/uL; Monocyte% 10.4 % (0-10); NRBC Flagged by Analyzer 0.3 % (0-5); Neutrophil # 3.95 X10^3/uL (2.7-7.7); Neutrophil % 59.4 % (47-70); Platelet Count 199 K/mm3 (150-450); RBC Distribution Width CV 16.3 % (11.6-14.6); RBC Distribution Width SD 59.6 fl (35.1-43.9); Red Blood Count 3.21 M/mm3 (4.2-5.4); White Blood Count 6.6 K/mm3 (4.4-11.0)
[2022-10-10 08:43] LABS: Albumin, Serum 2.7 g/dL (3.2-5.0); BUN 26 mg/dL (7-18); BUN/Creat Ratio 6.3 RATIO (10-20); Calcium,Total 9.1 mg/dL (8.5-10.1); Chloride 98 mmol/L (98-107); Creatinine, Serum 4.14 mg/dL (0.55-1.02); EST Glomerular Filtration Rate 11 mL/min (>60); Est Glom Filt Rate - Afr Amer 14 mL/min (>60); Glucose 108 mg/dL (74-106); Magnesium 2.1 mg/dL (1.6-2.6); Potassium 4.5 mmol/L (3.5-5.1); Sodium Level 134 mmol/L (136-145); Thyroid Stim Hormone (TSH) 5.04 uIU/mL (0.358-3.74)
== END ==
LOC: OLS.SW 05:00
PROVIDERS: PCP Internal Medicine; Visit Provider Internal Medicine
DX: E11.9 Type 2 diabetes mellitus without complications (principal); E03.9 Hypothyroidism, unspecified
CPT/HCPCS: 36415; 80069; 83036; 83735; 84443; 85025

== ENCOUNTER → 2022-10-12 | Outpatient (REF) | payer MEDICARE, MEDICAID, SELFPAY ==
[2022-10-12 07:49] LABS: Absolute Lymphocyte Count 1.63 X10^3/uL (0.83-4.51); Absolute Neutrophil Count 4.6 X10^3/uL (2.0-7.7); Basophil# 0.04 X10^3/uL; Basophil% 0.6 % (0-1); Eosinophil# 0.35 X10^3/uL; Eosinophils% 4.8 % (0-5); Hemoglobin 11.1 g/dL (12.0-15.0); Lymphocyte # 1.63 X10^3/ul (0.83-4.51); Lymphocyte % 22.5 % (19-41); Mean Corp Hgb Conc 30.8 g/dL (32-36); Mean Corpuscular Hgb 31.4 pg (27.0-32.0); Mean Platelet Vol. 9.6 fl (6.2-12.0); Monocyte# 0.62 X10^3/uL; Monocyte% 8.6 % (0-10); NRBC Flagged by Analyzer 0 % (0-5); Neutrophil # 4.58 X10^3/uL (2.7-7.7); Neutrophil % 63.1 % (47-70); Platelet Count 222 K/mm3 (150-450); RBC Distribution Width CV 16.6 % (11.6-14.6); RBC Distribution Width SD 60.3 fl (35.1-43.9); Red Blood Count 3.53 M/mm3 (4.2-5.4); White Blood Count 7.3 K/mm3 (4.4-11.0)
[2022-10-12 08:08] LABS: Anion Gap 10 (5-15); BUN 31 mg/dL (7-18); BUN/Creat Ratio 6.7 RATIO (10-20); Calcium,Total 9.3 mg/dL (8.5-10.1); Chloride 98 mmol/L (98-107); Creatinine, Serum 4.65 mg/dL (0.55-1.02); EST Glomerular Filtration Rate 10 mL/min (>60); Est Glom Filt Rate - Afr Amer 12 mL/min (>60); Glucose 125 mg/dL (74-106); Potassium 4.4 mmol/L (3.5-5.1); Sodium Level 132 mmol/L (136-145)
== END ==
LOC: OLS.SW 04:00
PROVIDERS: PCP Internal Medicine; Referring Provider Internal Medicine; Visit Provider Internal Medicine
DX: I10 Essential (primary) hypertension (principal)
CPT/HCPCS: 36415; 80048; 85025

== ENCOUNTER → 2022-10-17 | Outpatient (REF) | payer MEDICARE, MEDICAID, SELFPAY ==
[2022-10-17 09:09] LABS: Absolute Lymphocyte Count 1.74 X10^3/uL (0.83-4.51); Absolute Neutrophil Count 5.2 X10^3/uL (2.0-7.7); Albumin, Serum 3.1 g/dL (3.2-5.0); BUN 34 mg/dL (7-18); BUN/Creat Ratio 8.3 RATIO (10-20); Basophil# 0.03 X10^3/uL; Basophil% 0.4 % (0-1); Calcium,Total 8.7 mg/dL (8.5-10.1); Chloride 102 mmol/L (98-107); Creatinine, Serum 4.12 mg/dL (0.55-1.02); EST Glomerular Filtration Rate 11 mL/min (>60); Eosinophil# 0.12 X10^3/uL; Eosinophils% 1.5 % (0-5); Est Glom Filt Rate - Afr Amer 14 mL/min (>60); Glucose 131 mg/dL (74-106); Hematocrit 34.8 % (37-47); Hemoglobin 10.7 g/dL (12.0-15.0); Lymphocyte # 1.74 X10^3/ul (0.83-4.51); Lymphocyte % 21.9 % (19-41); Magnesium 2.1 mg/dL (1.6-2.6); Mean Corp Hgb Conc 30.7 g/dL (32-36); Mean Corpuscular Hgb 31.8 pg (27.0-32.0); Mean Corpuscular Volume 103.3 fL (81-99); Mean Platelet Vol. 9.8 fl (6.2-12.0); Monocyte# 0.76 X10^3/uL; Monocyte% 9.6 % (0-10); NRBC Flagged by Analyzer 0 % (0-5); Neutrophil # 5.24 X10^3/uL (2.7-7.7); POSITIVE MORPHOLOGY YES; Phosphorus 3.2 mg/dL (2.5-4.9); Platelet Count 171 K/mm3 (150-450); RBC Distribution Width CV 17.2 % (11.6-14.6); RBC Distribution Width SD 66.8 fl (35.1-43.9); Red Blood Count 3.37 M/mm3 (4.2-5.4); Sodium Level 135 mmol/L (136-145); White Blood Count 7.9 K/mm3 (4.4-11.0)
[2022-10-17 09:14] LABS: Differential Indicated SCAN CRITERIA MET
[2022-10-17 09:45] LABS: Anisocytosis 1+
== END ==
LOC: OLS.SW 05:00
PROVIDERS: PCP Internal Medicine; Visit Provider Internal Medicine
DX: N18.9 Chronic kidney disease, unspecified (principal); Z79.899 Other long term (current) drug therapy
CPT/HCPCS: 36415; 80069; 83735; 85025

== ENCOUNTER → 2022-10-19 | Outpatient (REF) | payer MEDICARE, MEDICAID, SELFPAY ==
[2022-10-19 08:31] LABS: Absolute Lymphocyte Count 1.55 X10^3/uL (0.83-4.51); Absolute Neutrophil Count 6.7 X10^3/uL (2.0-7.7); Basophil# 0.02 X10^3/uL; Basophil% 0.2 % (0-1); Eosinophil# 0.13 X10^3/uL; Eosinophils% 1.4 % (0-5); Hematocrit 34.3 % (37-47); Hemoglobin 10.5 g/dL (12.0-15.0); Lymphocyte # 1.55 X10^3/ul (0.83-4.51); Lymphocyte % 17.1 % (19-41); Mean Corp Hgb Conc 30.6 g/dL (32-36); Mean Corpuscular Hgb 30.9 pg (27.0-32.0); Mean Corpuscular Volume 100.9 fL (81-99); Monocyte# 0.68 X10^3/uL; Monocyte% 7.5 % (0-10); NRBC Flagged by Analyzer 0 % (0-5); Neutrophil # 6.65 X10^3/uL (2.7-7.7); Neutrophil % 73.2 % (47-70); Platelet Count 177 K/mm3 (150-450); RBC Distribution Width CV 16.7 % (11.6-14.6); RBC Distribution Width SD 62.3 fl (35.1-43.9); White Blood Count 9.1 K/mm3 (4.4-11.0)
[2022-10-19 08:43] LABS: Anion Gap 6 (5-15); BUN 34 mg/dL (7-18); BUN/Creat Ratio 7.3 RATIO (10-20); Calcium,Total 9.4 mg/dL (8.5-10.1); Chloride 103 mmol/L (98-107); Creatinine, Serum 4.68 mg/dL (0.55-1.02); EST Glomerular Filtration Rate 10 mL/min (>60); Est Glom Filt Rate - Afr Amer 12 mL/min (>60); Glucose 142 mg/dL (74-106); Potassium 4.5 mmol/L (3.5-5.1); Sodium Level 137 mmol/L (136-145)
== END ==
LOC: OLS.SW 05:00
PROVIDERS: PCP Internal Medicine; Visit Provider Internal Medicine
DX: E11.9 Type 2 diabetes mellitus without complications (principal); R68.89 Other general symptoms and signs; Z13.228 Encounter for screening for other metabolic disorders
CPT/HCPCS: 36415; 80048; 85025

== ENCOUNTER → 2022-10-26 | Outpatient (REF) | payer MEDICARE, MEDICAID, SELFPAY ==
[2022-10-26 09:13] LABS: Absolute Lymphocyte Count 1.39 X10^3/uL (0.83-4.51); Absolute Neutrophil Count 5.6 X10^3/uL (2.0-7.7); Basophil# 0.02 X10^3/uL; Basophil% 0.3 % (0-1); Eosinophil# 0.15 X10^3/uL; Eosinophils% 1.9 % (0-5); Hematocrit 33.1 % (37-47); Hemoglobin 10.7 g/dL (12.0-15.0); Lymphocyte # 1.39 X10^3/ul (0.83-4.51); Lymphocyte % 17.6 % (19-41); Mean Corp Hgb Conc 32.3 g/dL (32-36); Mean Corpuscular Hgb 31.4 pg (27.0-32.0); Mean Corpuscular Volume 97.1 fL (81-99); Mean Platelet Vol. 10.1 fl (6.2-12.0); Monocyte# 0.73 X10^3/uL; Monocyte% 9.3 % (0-10); NRBC Flagged by Analyzer 0 % (0-5); Neutrophil # 5.57 X10^3/uL (2.7-7.7); Neutrophil % 70.6 % (47-70); Platelet Count 212 K/mm3 (150-450); RBC Distribution Width CV 15.8 % (11.6-14.6); Red Blood Count 3.41 M/mm3 (4.2-5.4); White Blood Count 7.9 K/mm3 (4.4-11.0)
[2022-10-26 09:27] LABS: Anion Gap 10 (5-15); BUN 40 mg/dL (7-18); BUN/Creat Ratio 8.2 RATIO (10-20); Calcium,Total 9.2 mg/dL (8.5-10.1); Chloride 99 mmol/L (98-107); Creatinine, Serum 4.88 mg/dL (0.55-1.02); EST Glomerular Filtration Rate 9 mL/min (>60); Est Glom Filt Rate - Afr Amer 11 mL/min (>60); Glucose 149 mg/dL (74-106); Potassium 4.2 mmol/L (3.5-5.1); Sodium Level 135 mmol/L (136-145)
== END ==
LOC: OLS.SW 05:00
PROVIDERS: PCP Internal Medicine; Visit Provider Internal Medicine
DX: E11.9 Type 2 diabetes mellitus without complications (principal)
CPT/HCPCS: 36415; 80048; 85025

== ENCOUNTER 2022-10-29 16:25 | Emergency (ER) | payer MEDICARE, MEDICAID, SELFPAY ==
[2022-10-29] VITALS (9 sets, daily range): BP systolic 172; BP diastolic 76; PULSE 79–101; RESP 20–22; TEMP 36.3; O2SAT 73–100; BMI 44.4
--- NOTE | 2022-10-29 16:42 | EDS_ITS ---
HPI History of Present Illness Chief Complaint: Alt LOC Detail of Chief Complaint: Unresponsive GCS less than 8 Limited: stupor Onset/Context/Timing Onset: - (Last known well unknown) Worsened by: Unknown Relieved by: Unknown Associated Symptoms Length of loss of consciousness: Unknown Narrative Narrative: Patient is a 72-year-old woman with history of end-stage renal failure on hemodialysis. She was dialyzed this morning. She also has history of seizures, benign essential hypertension, hyperlipidemia, obstructive sleep apnea, DVT right upper extremity who ended by EMS because of unresponsiveness. No history is obtainable at this time. Prior similar symptoms: No Recent Illness/Hospitalization: No [facility] Medical History Congestive heart failure Diabetes DVT (deep venous thrombosis) Primary osteoarthritis, right shoulder Renal failure Right rotator cuff tear Right shoulder pain Home Medications acetaminophen 500 mg tablet (Tylenol Extra Strength) 1,000 mg PO TID PAIN 08/28/22 [History Last Taken 09/24/22] apixaban 5 mg tablet (Eliquis) 5 mg PO BID BLOOD THINNER 08/28/22 [History Last Taken 09/24/22] atorvastatin 40 mg tablet 40 mg PO QHS CHOLESTEROL 08/28/22 [History Last Taken 09/23/22] ferrous sulfate 325 mg (65 mg iron) tablet (Feosol) 325 mg PO DAILY SUPPLEMENT 08/28/22 [History Last Taken 09/24/22] insulin glargine 100 unit/mL subcutaneous solution (Lantus U-100 Insulin) 25 unit subcut QHS DIABETES 08/28/22 [History Last Taken 09/23/22] methocarbamol 750 mg tablet 750 mg PO TID 08/28/22 [History Last Taken 09/24/22] sertraline 100 mg tablet (Zoloft) 200 mg PO DAILY DEPRESSION 08/28/22 [History Last Taken 09/23/22] calcitriol 0.5 mcg capsule 0.5 mcg PO MOWEFR 09/24/22 [History Last Taken 09/21/22] calcium acetate 667 mg tablet 667 mg PO TIDCM 09/24/22 [History Last Taken 09/24/22] diclofenac sodium 1 % topical gel 1 ea topical BID PAIN 09/24/22 [History Last Taken 09/24/22] furosemide 40 mg tablet 40 mg PO DAILY FLUID 09/24/22 [History Last Taken 09/24/22] insulin lispro 100 unit/mL subcutaneous pen (Humalog KwikPen (U-100) Insulin) See Protocol subcut UD DIABETES 09/24/22 [History Last Taken 09/24/22] levothyroxine 100 mcg tablet 100 mcg PO DAILY THYROID 09/24/22 [History Last Taken 09/24/22] oxycodone 5 mg tablet 5 mg PO Q8H PRN Pain 09/24/22 [History Last Taken 09/21/22] vitamin B complex and vitamin C no.20-folic acid 1 mg capsule 1 cap PO DAILY SUPPLEMENT 09/24/22 [History Last Taken 09/24/22] Allergy/AdvReac Type Severity Reaction Status Date / Time linagliptin [From Tradjenta] Allergy Severe Hives Verified 08/28/22 22:06 shellfish derived Allergy Severe Hives Verified 08/28/22 22:06 adalimumab Allergy NEEDS Verified 09/24/22 13:27 FOLLOW-UP aspartame Allergy NEEDS Verified 09/24/22 13:27 FOLLOW-UP phenylalanine Allergy NEEDS Verified 09/24/22 13:27 FOLLOW-UP adhesive AdvReac Severe Rash Verified 08/28/22 22:06 stevioside [From Stevia] AdvReac Anaphylaxis Verified 08/28/22 22:06 Family History Mother Myocardial infarction Father Diabetes Heart disease Surgical History History of total left knee replacement History of total right knee replacement Hx of appendectomy Hx of hysterectomy Social History Smoking Status: Never smoker ROS ROS ED Review of Systems ROS Unobtainable: due to mental status EXAM Physical Exam Const Vital Signs: 10/29/22 16:27 10/29/22 16:35 10/29/22 16:36 Temperature 97.4 F L Temperature Source Temporal Pulse Rate 100 97 Respiratory Rate 20 H Blood Pressure 172/76 H Blood Pressure Mean 108 Pulse Ox 73 90 100 Oxygen Delivery Method Room Air Non-Rebreather Non-Rebreather Oxygen Flow Rate (L/min) 15 15 10/29/22 16:44 Temperature Temperature Source Pulse Rate Respiratory Rate Blood Pressure Blood Pressure Mean Pulse Ox 99 Oxygen Delivery Method Non-Rebreather Oxygen Flow Rate (L/min) 13 Positive well nourished, well developed and obese Constitutional Narrative: Patient became cyanotic. Pulse ox 40% on room air. She was placed on nonrebreather mask. General Appearance ED: well developed and NAD Nutritional Appearance: obese HEENT HEENT Narrative: She has pupils that are 2 to 3 mm in size nonreactive and gaze is disconjugate with roving eyes. normocephalic and atraumatic Eyes Negative for PERRL or EOMs intact bilaterally General Eye ED: Yes pale conjunctiva Neck full ROM and no lymphadenopathy Chest Wall Chest Narrative: There is no respiratory distress. Patient does have Akil-Pizarro breathing pattern. Cardio regular rate, regular rhythm and S1 normal heart sound GI non-tender, non-distended and no masses Neuro No oriented x3, No CN's II-XII intact bilaterally and No no sensory deficits noted Neuro Narrative: Patient has no motor tone right upper or right lower extremity. She does withdrawal on the left side. GCS: I opens to voice, 3 Verbal, 1 Motor, 4 Sensorium / Orientation: Negative for alert Speech: Negative for speech normal Gait (Neuro): Negative for normal gait Psych Negative for mental status grossly normal Skin Skin Narrative: Cyanosis and pallor MDM MDM MDM Narrative Medical decision making narrative: Suspect patient has either a hemorrhagic or ischemic stroke. Reviewing paperwork from nursing facility indicates that she has diabetes. PTT was assessed and is greater than 200. She also has a signed DNR Comfort Care only document. Spoke with her sister in [place] Shirley Womack who lives locally [place] and they confirmed that she is DNR comfort care and confer with the choice of hospice. Patient did have a seizure. This was treated with Ativan. She has a known seizure disorder. The hospice nurse will see patient at the nursing facility. Therefore, will discharge back to the nursing facility. Rhythm Strip Rhythm Strip: Sinus Rhythm Rate: 99 Ectopy: PVC(s) Discharge Plan Triage Chief Complaint: Alt LOC ED Provider: Michael Jack Dx/Rx/DC Orders Clinical Impression: [place] coma scale score 3-8, at arrival to emergency department, Benign essential hypertension, Hyperlipidemia, DM type 2 (diabetes mellitus, type 2), Morbid obesity, Acute respiratory failure with hypoxia, Generalized convulsive seizure, ESRD on hemodialysis Prescriptions: No Action insulin glargine [Lantus U-100 Insulin] 100 unit/mL solution 25 unit subcut QHS methocarbamol 750 mg tablet 750 mg PO TID acetaminophen [Tylenol Extra Strength] 500 mg tablet 1,000 mg PO TID Eliquis 5 mg tablet 5 mg PO BID sertraline [Zoloft] 100 mg tablet 200 mg PO DAILY ferrous sulfate [Feosol] 325 mg (65 mg iron) tablet 325 mg PO DAILY atorvastatin 40 mg tablet 40 mg PO QHS oxycodone 5 mg Tablet 5 mg PO Q8H PRN (Reason: Pain) insulin lispro [Humalog KwikPen Insulin] 100 unit/mL Insulin Pen See Protocol SUBCUT UD Protocol: 6. Sliding Scale Insulin Custom Condition: mg/dl range Dose/Route: Number of Units Condition: 151-200 Dose/Route: 1 Condition: 201-250 Dose/Route: 2 Condition: 251-300 Dose/Route: 3 Condition: 301-350 Dose/Route: 4 Condition: 351-400 Dose/Route: 5 Protocol Text: Custom Sliding Scale furosemide 40 mg Tablet 40 mg PO DAILY levothyroxine 100 mcg Tablet 100 mcg PO DAILY calcitriol 0.5 mcg Capsule 0.5 mcg PO MOWEFR Nephrocaps 1 mg Capsule 1 cap PO DAILY diclofenac sodium 1 % Gel 1 ea TOPICAL BID calcium acetate 667 mg Tablet 667 mg PO TIDCM Primary Care Provider: Asmita Rodney Referrals: Asmita Rodney MD [Primary Care Provider] - Disposition Disposition: Hospice in Medical Facility
--- NOTE | 2022-10-29 16:46 | ED.RN ---
PT REPORTS TO ER UNRESPONSIVE. PT SPO2 50. NONREBREATHER PLACED AT 15L. SPO2 100. PT STARTS SEIZING WITH THIS RN IN ROOM AT 1640. THIS RN NOTIFIED DR. STEPHENS. DR. STEPHENS AT BEDSIDE AT 1643. SEIZURE ENDED AT 1643. PT SUCTIONED BY Kulwant MCLAIN RN. DNR-CC PAPERWORK AT BEDSIDE. PER DR. STEPHENS, PTS SISTER AND DAUGHTER NOTIFIED. FAMILY OKAY WITH PLAN FOR HOSPICE CARE PER DR. STEPHENS.
[2022-10-29] MEDS: LORazepam 2 MG/ML Syringe IV (16:59)
--- NOTE | 2022-10-29 17:19 | CM.ED ---
DOREEN Note DOREEN spoke to MD. spoke to patient's sister, Shirley. Shirley agreed to hospice referral. DOREEN called patient's sister, Shirley Gauthier, and advised that the MD had indicated that the family wanted hospice. Shirley confirmed hospice desire. Shirley stated she will need a letter for the airplane compassionate care rates and also a vacation rental stating that they were advised to come back to [place] for end of life care for their loved one. Shirley reports [facility] is fine as a referral hospice for patient. Shirley inquired if patient would go back to [facility] with hospice or IPU and DOREEN indicated that would be determined by hospice staff. DOREEN faxed referral to [facility] for their review. DOREEN updated patient's niece, Reyna Ramirez, about hospice referral being made. Reyna said that [facility] called and will be in at 6:00-6:30pm. DOREEN had MD Jack sign compassionate rate care letter for airline travel for patient's sister, Shirley Gauthier. Copy of signed letter faxed to and original included in chart. Kami ESCOTO
--- NOTE | 2022-10-29 19:52 | CM.ED ---
DOREEN spoke to Caroline RN at [facility]. Caroline said that patient is going to Inpatient unit at 8pm. DOREEN called Hilary at [facility] and updated her that patient is going to [facility] IPU. DOREEN also sent email to Melly in admission advising patient is going to IPU at [facility]. Plan: Hospice Kami ESCOTO
--- NOTE | 2022-10-29 20:07 | ED.RN ---
THIS RN [facility] AND SPOKE TO RIC BENNETT. REPORT GIVEN AT 20:07.
[2022-10-29] MEDS: HYDROmorphone 1 MG/ML Syringe IV (20:23)
[2022-10-29] MEDS: Ondansetron 4 MG/2 ML Vial IV (21:09)
--- NOTE | 2022-10-29 21:54 | ED.RN ---
THIS RN CALLED [facility] DAV[facility] AT 2536. PT'S CLOTHES LEFT IN ROOM UPON DISCHARGE. MESSAGE LEFT WITH PT'S NIECE.
== END 2022-10-29 21:35 | disposition hospice, inpatient (51) ==
PROVIDERS: Emergency Provider Emergency Medicine; PCP Internal Medicine; Visit Provider Emergency Medicine
DX: I10 Essential (primary) hypertension (principal); Z99.2 Dependence on renal dialysis; E11.22 Type 2 diabetes mellitus with diabetic chronic kidney disease; N18.6 End stage renal disease; J96.01 Acute respiratory failure with hypoxia; E66.01 Morbid (severe) obesity due to excess calories; R56.9 Unspecified convulsions; E78.5 Hyperlipidemia, unspecified; Z86.718 Personal history of other venous thrombosis and embolism
CPT/HCPCS: 96374; 96375; 99284; A4216; J2405